=== PATIENT | male | born 1990 | race Caucasian/White ===

== ENCOUNTER 2024-01-05 05:37 | Observation (INO) | payer BC, SELFPAY ==
[2024-01-05] VITALS (14 sets, daily range): BP systolic 115–148; BP diastolic 61–96; PULSE 65–93; RESP 8–21; TEMP 36.3–36.9; O2SAT 96–100; BMI 26.6
--- NOTE | ~2024-01-05 | CT_ITS ---
EXAMINATION: CT abdomen pelvis w con DATE: 01/05/2024 06:58 INDICATION: Right lower quadrant abdominal pain. TECHNIQUE: Computed tomography (CT) of the abdomen and pelvis was performed with 100 mL Omnipaque 350 intravenous contrast. Automated exposure control and iterative reconstruction technique were employe d. The dose-length product was 382.29 mGy-cm. COMPARISON: None. FINDINGS: The visualized portions of lung bases are clear without pneumonia or pleural effusion. The liver, gallbladder, spleen, pancreas, adrenal glands, and kidneys are normal. The appendix is fluid-f illed and dilated to 11 mm with adjacent fat stranding, consistent with appendicitis. There are no pa thologically enlarged lymph nodes. There is no free intraperitoneal fluid. There is mild lumbar spond ylosis. IMPRESSION: 1. Acute appendicitis. Reviewed, dictated and finalized at location A. IMPRESSION: 1. Acute appendicitis.
--- NOTE | 2024-01-05 06:08 | ECG_ITS ---
Test Date: 2024-01-05 07:15:36 Measurements Intervals Carmen Rate: 66 P: 70 NV: 165 QRS: 70 QRSD: 97 T: -3 QT: 408 QTc: 430 Interpretive Statements SINUS RHYTHM POSSIBLE LEFT ATRIAL ENLARGEMENT [-0.1mV P WAVE IN V1/V2] INCOMPLETE RIGHT BUNDLE BRANCH BLOCK NONSPECIFIC T-WAVE ABNORMALITY No previous ECG available for comparison Electronically Signed On 01-05-2024 10:24:11 CDT by Darrell Orellana M.D.
[2024-01-05] MEDS: ONDANSETRON INJ 4 MG/2 ML VIAL IV PUSH (06:21)
[2024-01-05] MEDS: FAMOTIDINE 20 MG/2 ML VIAL IV PUSH (06:21)
[2024-01-05] MEDS: HYDROmorphone HCL INJ (*CRX) 1 MG/ML SYR 0.5 MG IV PUSH (06:22)
[2024-01-05] MEDS: SODIUM CHLORIDE 0.9% IV 2,000 ML 999 ML IV CONT (06:22)
--- NOTE | 2024-01-05 06:22 | ED.GENADULT ---
HPI - General Adult General Chief complaint: Abdominal Pain <Caden Floyd MD - Last Filed: 01/16/24 19:18> Stated complaint: abd pain <Caden Floyd MD - Last Filed: 01/16/24 19:18> Time Seen by Provider: 01/05/24 06:07 <Caden Floyd MD - Last Filed: 01/16/24 19:18> History of Present Illness HPI narrative: This is a 33-year-old male presenting ED with chief complaint of abdominal pain. Patient had a large meal of chicken and rice last night. He felt very bloated. He then developed pain in the right lower quadrant of his abdomen. He describes as a pressure. It is nonradiating 4/10 intensity and constant. He has never had pain like this before and it is positional depending on how he is sitting. He had 1 episode of nausea and vomiting has had 4 large loose stools. He denies fevers chills chest pain difficulty breathing. No history of abdominal surgeries. no on else ate the same food as him. <Caden Floyd MD - Last Filed: 01/16/24 19:18> Related Data Home medications: Home Medications Medication Instructions Recorded Confirmed No Home Medications 01/05/24 01/15/24 <Caden Floyd MD - Last Filed: 01/16/24 19:18> Allergies/adverse reactions: Allergies Allergy/AdvReac Type Severity Reaction Status Date / Time No Known Allergies Allergy Verified 01/15/24 08:07 <Caden Floyd MD - Last Filed: 01/16/24 19:18> FORMERLY [facility] Past Medical History Medical History: Medical History Hx of lymphoma <Caden Floyd MD - Last Filed: 01/16/24 19:18> Surgical History Surgical History: Surgical History History of insertion of central venous access port History of laparoscopic appendectomy (12/2023) History of removal of Port-a-Cath Hx of lymph node biopsy <Caden Floyd MD - Last Filed: 01/16/24 19:18> Social History Social History: Social History Smoking status: Never smoker Alcohol intake: current Drinks per week: 2 Substance use: never Do You Feel Safe in your Home?: Yes Lack of Transportation: No Lack of Food: Never True Current Housing: I Have Housing Concerned About Future Housing: No Difficulty Paying Gas/Electric Bills: No Difficulty Paying for Meds: No Currently Unemployed: No Education: Master's Degree or Higher Difficulty w/ Childcare or Family Care: No Spiritual care concerns: No <Caden Floyd MD - Last Filed: 01/16/24 19:18> Exam Narrative: APPEARANCE: No apparent distress. Head: atraumatic. EYES: EOMI, NOSE: Atraumatic NECK: Trachea midline RESPIRATORY: No increased rate of breathing clear to auscultation CARDIOVASCULAR: RRR, ABDOMINAL: Non-distended soft nontender no guarding rebound, no CVA tenderness MUSCULOSKELETAl: No obvious deformities NEURO: Alert. Moving 4/4 extremities SKIN:: Warm, dry. Normal color PSYCHIATRIC: Normal affect <Caden Floyd MD - Last Filed: 01/16/24 19:18> Course Course Emergency Course: Patient signed out to me pending interpretation of CT scan. This shows an acute appendicitis with some with associated fat stranding. Patient has a slight leukocytosis at 12.9. He denies being on anticoagulation states his last oral intake was approximately 6 or 7:00 p.m. last night. He notes that he does not have any pain or nausea at this time when he is evaluated at bedside. Discussed patient with on-call surgeon Dr. Sepulveda who recommends initiating patient on Unasyn and admitting to himself as an observation admission and he will coordinate an OR time. NPO order made. Stable for the floor. <Hiwot Rivas MD - Last Filed: 01/05/24 07:39> Vital Signs Vital signs: Vital Signs Temperature 97.7 F 01/05/24 06:01 Pulse Rate 72 01/05/24 06:01 Respiratory Rate 15 0
[2024-01-05 06:28] LABS: Basophils Percent Auto 0.1 % (0.2-1.2); Hematocrit 41.1 % (42.0-52.0); Immature Granulocyte Absolute 0.06 K/mm3 (0.00-0.031); Immature Granulocyte Percent A 0.5 % (0-0.5); Lymphocytes Absolute Auto 0.48 K/mm3 (0.9-3.2); Lymphocytes Percent Auto 3.7 % (18.3-44.2); Mean Corpuscular HGB Conc 34.1 g/dl (32-36); Mean Corpuscular Volume 91.1 fl (80-100); Mean Platelet Volume 10.8 fl (7.4-10.4); Monocytes Absolute Auto 0.6 K/mm3 (0.1-0.6); Neutrophils Absolute Auto 11.7 K/mm3 (1.3-6.7); Neutrophils Percent Auto 90.7 % (45.5-73.1); Platelet Count Result 143 k/mm3 (150-375); Red Blood Count 4.51 M/mm3 (4.6-6.20); White Blood Count 12.9 K/mm3 (4.5-10.0)
[2024-01-05 06:29] LABS: Add Urine Microscopic? NO; Appearance Urine Clear (Clear); Bilirubin Urine Negative (Negative); Blood Urine Negative (Negative); Color Urine Yellow (Yellow); Glucose Urine UA Negative (Negative); Ketones Urine Negative (Negative); Leukocyte Esterase Ur Negative LEU/UL (Negative); Nitrate Urine Negative (Negative); Protein Urine Negative (Negative); Specific Grav Ur 1.028 (1.001-1.035)
[2024-01-05 06:36] LABS: Alanine Aminotransferase 27 U/L (6-50); Albumin Level 4.6 g/dL (3.5-5.1); Alkaline Phosphatase 109 U/L (38-126); Anion Gap 11 mmol/L (4-12); Aspartate Amino Transferase 35 U/L (17-59); Bilirubin,Total 0.5 mg/dL (0.2-1.3); Blood Urea Nitrogen 18 mg/dL (9-20); Calcium 9.4 mg/dL (8.4-10.2); Carbon Dioxide 26 mmol/L (22-30); Chloride 99 mmol/L (98-107); Estimated CRCL calculation 120 ml/min; Estimated Glomerular Filt Rate > 60; Glucose 140 mg/dL (65-110); Lipase 59 U/L (23-300); Potassium 3.5 mmol/L (3.4-5.0); Sodium 136 mmol/L (137-145)
--- NOTE | 2024-01-05 07:16 | PC.NURSE ---
Pt reports last meal 01/03 Pt reports last fluid intake 0500 and states it was just a few sips of gatorade and water
--- NOTE | 2024-01-05 08:17 | ADMGEN ---
This patient, Ranjit Wong, was admitted to 2 Medical Room 260-01. Patient/family oriented to hospital policies and general routines including ID bracelet, bed and alarms, visiting hours, pain management, procedures, bathroom and other care routines, personal items, smoking policy, room service/diet, and visiting hours. Information on how to activate the Rapid Response Team has been discussed. Patient/Family are encouraged to report perceived risks to care and to ask questions if they do not understand what they are told or what they should do.
[2024-01-05] MEDS: LACTATED RINGERS 1,000 ML 100 ML IV CONT (08:36)
[2024-01-05] MEDS: PIPERACILLIN/TAZ 4.5G/NS 100ML 4.5 GM/100 ML BAG IVPB (08:36)
--- NOTE | 2024-01-05 12:55 | WPDHPUPDATE1 ---
History and Physical Update Update Date/Time: 01/05/24 12:55 History and Physical has been reviewed, including an updated exam of the patient. There are NO changes in the patient's condition. Risks, benefits, and alternatives have been discussed and questions answered. Patient agrees to proceed with procedure.
--- NOTE | 2024-01-05 12:55 | PM.IMHP ---
H&P: HPI History of Present Illness Date/Time: 01/05/24 12:55 Chief Complaint: RLQ pain Narrative: 33 yo man presented to the ED this AM with RLQ pain.He began having pain around midnight last night and initially reported this as feeling somewhat bloated and constipated. The pain then localized to the right lower quadrant. He denies any fevers or chills. He did have some nausea and vomiting. He has never had any symptoms like this in the past. Review of Systems Review of Systems: All systems reviewed & are unremarkable except as noted in HPI and below Constitutional: Constitutional: Denies chills and Denies fever(s) Eyes: Eyes: Denies change in vision ENT: Denies hearing loss, Denies neck pain and Denies sore throat Cardiovascular: Cardiovascular: Denies chest pain and Denies dyspnea Respiratory: Respiratory: Denies cough, Denies dyspnea and Denies wheezing Gastrointestinal: Gastrointestinal: Reports as per HPI Genitourinary: Genitourinary: Denies hematuria and Denies dysuria Musculoskeletal: Musculoskeletal: Denies arthralgias, Denies joint swelling and Denies neck pain Allergic/Immunologic: Allergic/Immunologic: Denies wheezing [facility] Past Medical History Medical History (Updated 01/05/24 @ 13:15 by Ender Sepulveda DO) Hx of lymphoma Surgical History Surgical History (Updated 01/05/24 @ 13:11 by Ender Sepulveda DO) History of insertion of central venous access port History of removal of Port-a-Cath Hx of lymph node biopsy Social History Social History Smoking status: Never smoker Alcohol intake: current Drinks per week: 2 Substance use: never Do You Feel Safe in your Home?: Yes Lack of Transportation: No Lack of Food: Never True Current Housing: I Have Housing Concerned About Future Housing: No Difficulty Paying Gas/Electric Bills: No Difficulty Paying for Meds: No Currently Unemployed: No Education: Master's Degree or Higher Difficulty w/ Childcare or Family Care: No Spiritual care concerns: No Meds Home Medications and Allergies Home Medications Medication Instructions Recorded Confirmed Type No Home Medications 01/05/24 01/05/24 History Allergies Allergy/AdvReac Type Severity Reaction Status Date / Time No Known Allergies Allergy Verified 08/20/24 07:13 Vital Signs Vital Signs - 24 hr 01/05/24 06:01 01/05/24 07:11 01/05/24 07:11 Temperature 36.5 C Pulse Rate 72 68 66 Respiratory Rate 15 17 Blood Pressure 115/66 130/72 Pulse Oximetry 100 100 Oxygen Delivery Room Air 01/05/24 07:56 01/05/24 08:30 Temperature 36.4 C 36.7 C Pulse Rate 67 70 Respiratory Rate 12 18 Blood Pressure 148/92 H 125/61 Pulse Oximetry 99 100 Oxygen Delivery Exam Const: General: alert; No acute distress Orientation/consciousness: patient oriented x3 Limitations: no limitations HENMT: Head: normocephalic and atraumatic Ears: hearing grossly normal bilaterally Face/Nose/Sinus: Normal external nose present and Normal nares present Mouth: Yes Normal oral and palatal mucosa present and Yes moist mucous membranes Eyes: General: appearance normal, both eyes and all related structures Conjunctivae: conjunctivae normal Sclera: sclerae normal Pupils: Equal, round and reactive pupils present EOM: EOMs intact bilaterally Neck: Neck: normal visual inspection, full ROM, no lymphadenopathy, supple and no JVD Lymphatic: no lymphadenopathy noted Chest: Chest palpation & inspection: normal inspection of the chest Resp: Effort & Inspection: normal respiratory effort and able to speak in complete sentences Auscultation: clear to auscultation bilaterally Percussion: percussion normal Cardio: Jugular venous distension: no JVD Rate: regular rate Rhythm: regular rhythm Heart sounds: S1 normal heart sound present and S2 normal heart sound present Peripheral pulses: Peripheral pulses 2+ th
[2024-01-05] MEDS: LACTATED RINGERS 1,000 ML 30 ML IV CONT (13:15)
--- NOTE | 2024-01-05 13:18 | WPDANESEPPF ---
Anes - Initial Pre Proc Eval Procedure: Operation Date: 01/05/24 14:30 Proposed Procedures p Laparoscopic Appendectomy - Ender Sepulveda DO Date/Time: 01/05/24 13:18 Surgeon: Ender Sepulveda DO Pre Op Diagnosis: acute appy Patient Data Age: 33 Gender: M Height: 1.78 m Weight: 84.3 kg Last Vital Signs Temp 98.0 F 01/05/24 08:30 Pulse 70 01/05/24 08:30 Resp 18 01/05/24 08:30 BP 125/61 01/05/24 08:30 Pulse Ox 100 01/05/24 08:30 O2 Del Method Room Air 01/05/24 06:01 Allergies Allergy/AdvReac Type Severity Reaction Status Date / Time No Known Allergies Allergy Verified 01/05/24 07:13 Home Medications Medication Instructions Recorded Confirmed Type No Home Medications 01/05/24 01/05/24 History Laboratory Tests 01/05/24 06:14 WBC 12.9 H K/mm3 (4.5-10.0) RBC 4.51 L M/mm3 (4.6-6.20) Hgb 14.0 g/dL (14.0-18.0) Hct 41.1 L % (42.0-52.0) MCV 91.1 fl (80-100) MCH 31.0 pg (26-34) MCHC 34.1 g/dl (32-36) RDW 13.0 % (11.5-14.5) Plt Count 143 L k/mm3 (150-375) MPV 10.8 H fl (7.4-10.4) Immature Gran % (Auto) 0.5 % (0-0.5) Neut % (Auto) 90.7 H % (45.5-73.1) Lymph % (Auto) 3.7 L % (18.3-44.2) [place] % (Auto) 5.0 % (2.6-8.5) Eos % (Auto) 0.0 % (0-4.4) Baso % (Auto) 0.1 L % (0.2-1.2) Lymph # (Auto) 0.48 L K/mm3 (0.9-3.2) [place] # (Auto) 0.6 K/mm3 (0.1-0.6) Eos # (Auto) 0.0 K/mm3 (0-0.3) Baso # (Auto) 0.0 K/mm3 (0.0-0.1) Abs Immat Gran (auto) 0.06 H K/mm3 (0.00-0.031) Absolute Neuts (auto) 11.7 H K/mm3 (1.3-6.7) Absolute Nucleated RBC 0.000 K/mm3 (0.0-0.012) Nucleated RBC % 0.0 % (0.0-0.2) % Immature Plt Fraction 5.0 % (0.9-11.2) Sodium 136 L mmol/L (137-145) Potassium 3.5 mmol/L (3.4-5.0) Chloride 99 mmol/L (98-107) Carbon Dioxide 26 mmol/L (22-30) Anion Gap 11 mmol/L (4-12) BUN 18 mg/dL (9-20) Creatinine 0.80 mg/dL (0.7-1.3) Estim Creat Clear Calc 120 ml/min Estimated GFR > 60 (59 - ) Glucose 140 H mg/dL (65-110) Calcium 9.4 mg/dL (8.4-10.2) Total Bilirubin 0.5 mg/dL (0.2-1.3) AST 35 U/L (17-59) ALT 27 U/L (6-50) Alkaline Phosphatase 109 U/L (38-126) Total Protein 8.0 g/dL (6.3-8.2) Albumin 4.6 g/dL (3.5-5.1) Lipase 59 U/L (23-300) Urine Color Yellow (Yellow) Urine Appearance Clear (Clear) Urine pH 7.0 (5.0-9.0) Ur Specific [place] 1.028 (1.001-1.035) Urine Protein Negative mg/dL (Negative) Urine Glucose (UA) Negative mg/dL (Negative) Urine Ketones Negative mg/dL (Negative) Ur Blood (Man) Negative (Negative) Urine Nitrate Negative (Negative) Urine Bilirubin Negative (Negative) Urine Urobilinogen 1.0 mg/dL (<2.0) Leukocyte Esterase Rfl Negative DENA/UL (Negative) Patient hx anesthesia problems: none Family hx anesthesia problems: none Results Review: All pre-operative results and documents have been reviewed as part of the pre-operative evaluation. [facility] Past Medical History Medical History Hx of lymphoma Surgical History Surgical History History of insertion of central venous access port History of removal of Port-a-Cath Hx of lymph node biopsy Social History Social History Smoking status: Never smoker Alcohol intake: current Drinks per week: 2 Substance use: never Do You Feel Safe in your Home?: Yes Lack of Transportation: No Lack of Food: Never True Current Housing: I Have Housing Concerned About Future Housing: No Difficulty Paying Gas/Electric Bills: No Difficulty Paying for Meds: No Currently Unemployed: No Education: M
[2024-01-05] MEDS: BUPIVACAINE/EPINEPHRINE 0.5% 10 ML VIAL 30 ML INFILTRATE (13:22)
--- NOTE | 2024-01-05 14:17 | W.PM.PROC2 ---
Procedure Note - Detailed Date of Procedure 01/05/24 Pre-op Diagnosis Acute appendicitis Post-op Diagnosis Same ( acute uncomplicated appendicitis) Procedure Performed Laparoscopic appendectomy Surgeon Ender Sepulveda DO Anesthesia General and Local (0.5% bupivicaine with epinephrine) Indications this is a 33-year-old man who presented to the emergency department today with right lower quadrant abdominal pain. This pain started around midnight last night. He was noted to have an elevated white blood count and CT showed evidence of acute appendicitis. Discussions were made with the patient about treatment options and decision was made to proceed with laparoscopic appendectomy, possible open. Findings Laparoscopic appendectomy was performed. The appendix appeared dilated and indurated but there was no evidence of perforation or abscess. The base of the appendix appeared healthy and viable. No other abnormalities were noted. The appendix was removed and sent to the lab for pathology. Description of Procedure Procedure as well as risks, benefits, and alternatives were explained to the patient. The patient agreed to proceed. Written consent was obtained and placed in chart prior to procedure. The patient was brought back to surgical suite. He was placed supine on operating table. Time-out was done to confirm the patient and procedure. The patient was then intubated by the Anesthesia Department. his abdomen was prepped and draped in sterile fashion using chlorhexidine prep. A 5 mm incision was made just to the left of the patient's umbilicus and a 5 mm Optiview trocar was advanced through the abdominal layers under direct visualization. Once inside the peritoneal cavity, carbon dioxide insufflation was used to create a pneumoperitoneum. The camera was inserted and the abdomen was inspected. No immediate abnormalities were identified. The patient was then placed in slight Trendelenburg position and rotated to the left. A 5 mm incision was made in the suprapubic region in midline and a 5 mm trocar was inserted under direct visualization. A 12 mm incision was made in the left lower quadrant and a 12 mm trocar was inserted under direct visualization. The right lower quadrant was carefully inspected. The cecum was identified and then this was traced back to the appendix. The appendix was identified and grasped at the mesoappendix and lifted anteriorly. Careful blunt dissection was carried out at the base of the appendix through the mesoappendix using a [place] grasper. An Endo-NEISHA 45 mm blue load stapler was then advanced across the base of the appendix and clamped and fired. A white reload was then clamped across the mesoappendix and fired. This freed up our appendix completely. It was then placed in an EndoCatch bag and removed through the left lower quadrant port. The staple lines were then inspected. Hemostasis appeared adequate and the staple lines appeared secure. The area was then irrigated with sterile saline. The pelvis was then carefully inspected and irrigated with sterile saline as well and the remainder of the abdomen was carefully inspected. The patient was then flattened out in bed. One final inspection was made around the abdominal cavity and no other abnormalities were seen. The left lower quadrant port was removed and a Yonny-Aislinn cone was used to approximate the fascia with an 0 Vicryl simple interrupted suture. The remaining ports were then removed under direct visualization. The camera was removed and the pneumoperitoneum was released. 0.5% bupivacaine with epinephrine was infiltrated locally around each of the incisions. The skin of the incisions was then approximated using 4-0 Monocryl subcuticular suture and Exofin glue was applied on top. The patient was then awakened from anesthesia, extubated, and transferred to Recovery. Estimated Blood Loss 10 Urine Output 300 Pathology Yes (Appendix) Complications
--- NOTE | 2024-01-05 15:21 | PM.DS ---
DS: Admitting Diagnosis Discharge Date 01/05/2024 Admitting Diagnosis Acute appendicitis DS: Discharge Diagnosis Discharge Diagnosis (1) Acute appendicitis: Qualifiers: Acute appendicitis type: with localized peritonitis Appendicitis abscess presence: without abscess Appendicitis gangrene presence: without gangrene Appendicitis perforation presence: without perforation Qualified Code(s): K35.30 - Acute appendicitis with localized peritonitis, without perforation or gangrene Code(s): K35.80 - Unspecified acute appendicitis Status: Acute DS: Summary Hospital Course Reason for hospitalization: acute appendicitis Hospital Course: this is a 33-year-old man who presented to the emergency department with right lower quadrant abdominal pain. He was found to have evidence of acute appendicitis and was placed in observation for further treatment. He was started on Zosyn. Decision was made to proceed with laparoscopic appendectomy. This was done on 01/04 and he was returned to the surgical floor postoperatively. His diet and activity were advanced as tolerated. He was discharged home once his pain was controlled, he was tolerating his diet, he vitals remained stable, and he was ambulating in the halls. Status at Discharge Functional status at discharge: independent ambulation Overall status at discharge: patient is progressing back to baseline Time Spent with Patient Time attestation: Total time spent providing and/or coordinating discharge services: Time spent: Less than 30 minutes Exam GI: Inspection: incision (intact with glue) DS: Data Data Completed and Pending Pending studies at discharge: Pending at discharge 01/05/24 13:54 Surgical [PTH] Routine Labs on day of discharge: Labs from last 24 hours 01/05/24 06:14 WBC 12.9 H RBC 4.51 L Hgb 14.0 Hct 41.1 L MCV 91.1 MCH 31.0 MCHC 34.1 RDW 13.0 Plt Count 143 L MPV 10.8 H Immature Gran % (Auto) 0.5 Neut % (Auto) 90.7 H Lymph % (Auto) 3.7 L [place] % (Auto) 5.0 Eos % (Auto) 0.0 Baso % (Auto) 0.1 L Lymph # (Auto) 0.48 L [place] # (Auto) 0.6 Eos # (Auto) 0.0 Baso # (Auto) 0.0 Abs Immat Gran (auto) 0.06 H Absolute Neuts (auto) 11.7 H Absolute Nucleated RBC 0.000 Nucleated RBC % 0.0 % Immature Plt Fraction 5.0 Sodium 136 L Potassium 3.5 Chloride 99 Carbon Dioxide 26 Anion Gap 11 BUN 18 Creatinine 0.80 Estim Creat Clear Calc 120 Estimated GFR > 60 Glucose 140 H Calcium 9.4 Total Bilirubin 0.5 AST 35 ALT 27 Alkaline Phosphatase 109 Total Protein 8.0 Albumin 4.6 Lipase 59 Urine Color Yellow Urine Appearance Clear Urine pH 7.0 Ur Specific [place] 1.028 Urine Protein Negative Urine Glucose (UA) Negative Urine Ketones Negative Ur Blood (Man) Negative Urine Nitrate Negative Urine Bilirubin Negative Urine Urobilinogen 1.0 Leukocyte Esterase Rfl Negative Imaging Radiologist's impression: ITS Impressions Abdomen/Pelvis CT 01/05/24 07:00 IMPRESSION: 1. Acute appendicitis. Discharge Plan Discharge Attending physician on discharge: Ender Llamas Discharging Clinician: Ender Llamas Anticipated Discharge Date/Time: 01/05/24 17:30 Patient Disposition: Home, Self-Care Activity: other - see discharge instructions Diet: regular Wound Care Instructions: other - see discharge instructions Discharge Instructions: DISCHARGE INSTRUCTION SHEET FOR HERNIA, GALLBLADDER AND APPENDIX SURGERIES DR. LLAMAS PATIENT TO TAKE HOME 1. May shower in 24 hours, no soaking in bath x 2weeks. 2. Call office for: Wound increasingly painful or bleeding Vomiting Fever of greater than 101 degrees 3. If no bowel movement for three days, take 1 oz. (30 ml) Milk of Magnesia or MiraLax 17g 1 to 2 times daily. 4. No heavy lifting > 10-15 pounds x weeks for hernia repairs and 2 weeks for laparoscopic cholecystectomy or ap
[2024-01-05] MEDS: HYDROcodone/acetaminophen (*CRX) 5-325 MG TABLET 1 TAB PO (16:01)
== END 2024-01-05 18:51 | disposition home or self-care (01) ==
LOC: ANHED 07:39 → ANH2MED 07:42
PROVIDERS: Admitting Provider Surgery; Emergency Provider Emergency Medicine; PCP Family Medicine Adolescent Medicine; Visit Provider Surgery
PROC: 0DTJ4ZZ Resection of Appendix, Percutaneous Endoscopic Approach (ICD-10-PCS; CPT 44970; principal; 2024-01-05 14:30)
DX: K35.80 Unspecified acute appendicitis (principal); Z85.72 Personal history of non-Hodgkin lymphomas
CPT/HCPCS: 44970; 36415; 74177; 80053; 81003; 83690; 85025; 85055; 88304; 93005; 96361; 96365; 96375; 99285; A9270; G0378; J1170; J2250; J2405; J2543; J2704; J3010; J7030; J7120; Q9967